=== PATIENT | male | born 1965 | race Caucasian/White ===

== ENCOUNTER 2025-01-11 18:43 | Inpatient (IN) | payer BC, MEDICAID ==
[~2025-01-11] VITALS: Ht 167.6 cm; Wt 56.2 kg
[2025-01-11] MEDS ORDERED: DEXTROSE 50%-WATER 50 ML DISP.SYRIN ONE (19:01)
[2025-01-11 19:25] LABS: BASOPHILS % (AUTO) 0.1 % (0.0-2.0); EOSINOPHILS % (AUTO) 0.1 % (0.0-6.0); HEMATOCRIT 30 % (39-51); HEMOGLOBIN 9.1 g/dL (13.5-17.5); LYMPHOCYTES # (AUTO) 1.5 K/uL (0.8-4.8); LYMPHOCYTES % (AUTO) 9.4 % (20.0-44.0); MEAN CORPUSCULAR HEMOGLOBIN 24 PG (26.0-33.0); MEAN CORPUSCULAR HGB CONC 30 g/dl (31.0-36.0); MEAN CORPUSCULAR VOLUME 80 fL (80-96); MONOCYTES # (AUTO) 0.2 K/uL (0.1-1.30); MONOCYTES % (AUTO) 1.6 % (2.0-12.0); NEUTROPHILS % (AUTO) 88.8 % (43.0-81.0); PLATELET COUNT (AUTO) 289 K/uL (150-450); RED BLOOD CELL COUNT(AUTO) 3.77 MIL/uL (4.5-6.0); RED CELL DISTRIBUTION WIDTH 21.2 % (11.5-15.0); WHITE BLOOD COUNT (AUTO) 15.7 K/uL (4.3-11.0)
[2025-01-11 19:36] LABS: CALCIUM, SERUM 8.4 mg/dL (8.5-10.1); CHLORIDE 96 mmol/L (98-107); CREATININE 3.1 mg/dL (0.6-1.3); GLUCOSE 359 mg/dL (74-106); SODIUM SERUM 128 mmol/L (136-145); UREA NITROGEN, BLOOD 43 mg/dL (7-18)
[2025-01-11 19:37] LABS: SERUM AMMONIA 87 umol/L (11-32)
[2025-01-11 19:40] LABS: INR 1.47 (0.91-1.10); PARTIAL THROMBOPLASTIN TIME 38.2 SEC (24.3-34.3); PROTHROMBIN TIME 15.2 SECS (9.2-11.1)
[2025-01-11] MEDS: PIPERACILLIN /TAZOBACTAM 3.375 G in IV D5W 50 ML IV ONE (19:40)
[2025-01-11] MEDS: DEXTROSE 50%-WATER 50 ML DISP.SYRIN IVP ONE (19:40)
[2025-01-11] MEDS: VANCOMYCIN 1 GM in IV D5W 250 ML IV ONE (19:41)
[2025-01-11] MEDS: IV NS 0.9% 1,000 ML BAG IV ONE ×2 (19:42→19:52)
[2025-01-11] MEDS ORDERED: LORAZEPAM INJ 2 MG/ML VIAL ONE (19:45)
[2025-01-11 19:46] LABS: BAND % (MANUAL) 5 % (0.0-5.0); LYMPHOCYTES % (MANUAL) 12 % (16-48); MONOCYTES % (MANUAL) 4 % (0-11.0); NEUTROPHILS % (MANUAL) 79 (42-76); PLATELET ESTIMATE ADEQU
[2025-01-11 19:47] LABS: ANISOCYTOSIS 1+; LACTIC ACID 13.9 mmol/L (0.4-2.0); ROULEAUX 1+
[2025-01-11] MEDS: LORAZEPAM INJ 2 MG/ML VIAL IV ONE (19:51)
[2025-01-11] MEDS ORDERED: SODIUM BICARBONATE SYR 50 MEQ/50 ML DISP.SYRIN ONE (19:54)
[2025-01-11] MEDS ORDERED: CALCIUM CHLORIDE 1,000 MG/10 ML DISP.SYRIN ONE (19:54)
[2025-01-11 19:55] LABS: ACETAMINOPHEN < 10 ug/ml (10-30); ALANINE AMINOTRANSFERASE 1192 U/L (12-78); ALBUMIN 1.7 g/dL (3.4-5.0); ALKALINE PHOSPHATASE 111 U/L (46-116); ASPARTATE AMINOTRANSFERASE > 1000 U/L (15-37); BILIRUBIN,DIRECT 0.3 mg/dL (0.0-0.2); BILIRUBIN,TOTAL 0.8 mg/dL (0.2-1.0); TOTAL PROTEIN, SERUM 4.7 g/dL (6.4-8.2)
[2025-01-11 19:57] LABS: CARBON DIOXIDE 10 mmol/L (21-32); POTASSIUM 6.6 mmol/L (3.5-5.1); SALICYLATE 1.6 mg/dL (2.8-20.0)
[2025-01-11] MEDS ORDERED: SODIUM ZIRCONIUM CYCLOSILICATE 10 GM POWD.PACK PO ONE (20:00)
[2025-01-11] MEDS: SODIUM BICARBONATE SYR 50 MEQ/50 ML DISP.SYRIN IV ONE (20:00)
[2025-01-11] MEDS: ALBUTEROL FS 2.5 MG/0.5 ML VIAL.NEB NEB ONE (20:00)
[2025-01-11] MEDS: CALCIUM CHLORIDE 1,000 MG/10 ML DISP.SYRIN IV ONE (20:00)
[2025-01-11] MEDS: MIDAZOLAM HCL 100 MG in IV NS 0.9% 80 ML IV PRN (20:01)
[2025-01-11] MEDS ORDERED: PROPOFOL 100 ML ONE (20:02)
[2025-01-11] MEDS: PROPOFOL 100 ML IV PRN (20:11)
[2025-01-11 20:14] LABS: ALCOHOL, BLOOD < 3 mg/dL (0-10)
[2025-01-11 20:25] LABS: ABG BASE EXCESS -20.6 mmol/L (-2.0-3.0); ABG PCO2 28.6 mmHg (35.0-48.0); ABG PH 7.071 (7.350-7.450); ABG PO2 77.5 mmHg (83.0-108.0); COHb 0.1 % (0.5-1.5); MetHb 0.4 % (0.0-1.5); O2Hb 86.6 % (94.0-97.0); PEEP,BG 0 cm H2O; SITE, ABG RIGHT RADIAL; VT, ABG 500 mL
[2025-01-11] MEDS ORDERED: IOHEXOL-300 100 ML VIAL IV ONE (20:37)
[2025-01-11 21:03] LABS: APPEARANCE,URINE CLEAR (CLEAR); BILIRUBIN,URINE NEGATIVE (NEGATIVE); BLOOD, URINE 3+ Ery/uL (NEGATIVE); COLOR,URINE YELLOW (YELLOW); KETONES,URINE TRACE mg/dL (NEGATIVE); LEUKOCYTE ESTERASE ,URINE NEGATIVE (NEGATIVE); NITRITE, URINE NEGATIVE (NEGATIVE); PH,URINE 5.5 (5.0-8.0); PROTEIN,URINE 1+ mg/dl (NEGATIVE); UGLUCOSE NEGATIVE (NEGATIVE); UROBILINOGEN,URINE 0.2 EU/dL (0.2)
[2025-01-11 21:07] LABS: AMPHETAMINE, URINE NEGATIVE (NEGATIVE); BARBITURATE, URINE NEGATIVE (NEGATIVE); BENZODIAZEPINE, URINE NEGATIVE (NEGATIVE); CANNABINOID, URINE NEGATIVE (NEGATIVE); COCCAINE, URINE NEGATIVE (NEGATIVE); OPIATE, URINE NEGATIVE (NEGATIVE); PHENCYCLIDINE SCREEN,URINE NEGATIVE (NEGATIVE)
[2025-01-11 21:10] LABS: RBC,URINE 51-80 /HPF (0-2)
[2025-01-11 21:11] LABS: ADD URINE CULTURE NO; BACTERIA,URINE None seen /HPF (None Seen); HYALINE CASTS, URINE Few /LPF (None Seen); SQUAMOUS EPITHELIAL CELL,UR 0-2 /HPF (None Seen); WBC,URINE 0-2 /HPF (0-3)
[2025-01-11] MEDS ORDERED: SODIUM ZIRCONIUM CYCLOSILICATE 10 GM POWD.PACK ONE (21:17)
[2025-01-11 22:48] LABS: ABG BASE EXCESS -18.5 mmol/L (-2.0-3.0); ABG OXYGEN SATURATION 99.4 % (94.0-98.0); ABG PCO2 23.4 mmHg (35.0-48.0); ABG PO2 550.1 mmHg (83.0-108.0); ABG TOTAL HEMOGLOBIN 11.1 G/dL (13.5-17.5); COHb 0.1 % (0.5-1.5); MetHb 0.5 % (0.0-1.5); O2Hb 98.8 % (94.0-97.0); PEEP,BG 5 cm H2O; SITE, ABG RIGHT RADIAL; VT, ABG 400 mL
[2025-01-11] MEDS: IV NS 0.9% 500 ML BAG IV ONE (22:55)
[2025-01-11] MEDS ORDERED: MAG HYDROX/AL HYDROX/SIMETH 30 ML UDC PO PRN (23:00)
[2025-01-11] MEDS ORDERED: ACETAMINOPHEN 325 MG TABLET PO PRN (23:00)
[2025-01-11] MEDS ORDERED: Z GUARD REMEDY 4 OZ OINT TP PRN (23:00)
[2025-01-11] MEDS ORDERED: ZOLPIDEM TARTRATE 5 MG TABLET PO PRN (23:00)
[2025-01-11] MEDS ORDERED: MAGNESIUM HYDROXIDE 30 ML UDC PO PRN (23:00)
[2025-01-11] MEDS ORDERED: ONDANSETRON HCL/PF 4 MG/2 ML VIAL IVP PRN (23:00)
[2025-01-11] MEDS: D5W IV PRN (23:04)
[2025-01-11] MEDS: KETAMINE HCL IV PRN (23:04)
[2025-01-11] MEDS ORDERED: NOREPINEPHRINE 8MG/250ML RTU 250 ML IV ONE (23:31)
[2025-01-11] MEDS ORDERED: ROCURONIUM BROMIDE 50 MG/5 ML ONE (23:37)
[2025-01-11] MEDS ORDERED: MIDAZOLAM HCL 5 MG/5ML VIAL ONE (23:37)
[2025-01-11] MEDS ORDERED: MIDAZOLAM HCL 2 MG/2ML VIAL ONE (23:37)
[2025-01-11] MEDS ORDERED: VASOPRESSIN INJ 20 UNIT/ML VIAL ONE (23:38)
[2025-01-11] MEDS ORDERED: NOREPINEPHRINE 4 MG/4 ML AMPUL IV ONE (23:38)
[2025-01-11] MEDS ORDERED: ANESTHESIA TRAY IN PYXIS 1 EA TRAY MC ONE (23:39)
[2025-01-11] MEDS: MIDAZOLAM HCL 5 MG/5ML VIAL IV ONE (23:46)
[2025-01-12] VITALS (43 sets, daily range): BP systolic 40–158; BP diastolic 11–76; TEMP 95.5–98.5; O2SAT 95–100
[2025-01-12] MEDS: NOREPINEPHRINE 8 MG in IV D5W 242 ML IV PRN (00:30)
[2025-01-12] MEDS ORDERED: INDOCYANINE GREEN 25 MG/VIAL VIAL IJ ONE (01:53)
[2025-01-12] MEDS: IV 1/2NS 1000 ML 1,000 ML IV PRN (03:27)
[2025-01-12] MEDS: PIPERACILLIN /TAZOBACTAM 3.375 G in IV D5W 50 ML IV ONE (03:53)
[2025-01-12] MEDS: PIPERACI/TAZO 3.375GM/D5W 50ML PB IV ONE (03:54)
[2025-01-12 04:44] LABS: BASOPHILS % (AUTO) 0.1 % (0.0-2.0); EOSINOPHILS # (AUTO) 0.1 K/uL (0.0-0.7); EOSINOPHILS % (AUTO) 0.7 % (0.0-6.0); HEMATOCRIT 30 % (39-51); LYMPHOCYTES # (AUTO) 1.5 K/uL (0.8-4.8); LYMPHOCYTES % (AUTO) 15.1 % (20.0-44.0); MEAN CORPUSCULAR HEMOGLOBIN 25 PG (26.0-33.0); MEAN CORPUSCULAR HGB CONC 30 g/dl (31.0-36.0); MEAN CORPUSCULAR VOLUME 85 fL (80-96); MONOCYTES # (AUTO) 0.1 K/uL (0.1-1.30); MONOCYTES % (AUTO) 1.1 % (2.0-12.0); NEUTROPHILS # (AUTO) 8.1 K/uL (1.8-8.9); PLATELET COUNT (AUTO) 234 K/uL (150-450); RED BLOOD CELL COUNT(AUTO) 3.57 MIL/uL (4.5-6.0); RED CELL DISTRIBUTION WIDTH 21.7 % (11.5-15.0); WHITE BLOOD COUNT (AUTO) 9.8 K/uL (4.3-11.0)
[2025-01-12 04:58] LABS: SERUM AMMONIA 118 umol/L (11-32)
[2025-01-12 05:00] LABS: ALANINE AMINOTRANSFERASE 3480 U/L (12-78); ALKALINE PHOSPHATASE 114 U/L (46-116); BILIRUBIN,DIRECT 0.4 mg/dL (0.0-0.2); BILIRUBIN,TOTAL 0.8 mg/dL (0.2-1.0); TOTAL PROTEIN, SERUM 3.9 g/dL (6.4-8.2)
[2025-01-12 05:51] LABS: ASPARTATE AMINOTRANSFERASE > 1000 U/L (15-37)
[2025-01-12 05:55] LABS: ALBUMIN 1.2 g/dL (3.4-5.0)
[2025-01-12 05:56] LABS: LACTIC ACID 9.5 mmol/L (0.4-2.0)
[2025-01-12 06:28] LABS: CALCIUM, SERUM 6.8 mg/dL (8.5-10.1); POTASSIUM 6.1 mmol/L (3.5-5.1)
[2025-01-12 06:29] LABS: CREATININE 2.2 mg/dL (0.6-1.3); PHOSPHORUS 11.6 mg/dL (2.5-4.9)
[2025-01-12] MEDS ORDERED: DEXTROSE 50%-WATER 50 ML DISP.SYRIN ONE (07:54)
[2025-01-12] MEDS ORDERED: DEXTROSE 50%-WATER 50 ML DISP.SYRIN IVP PRN (08:00)
[2025-01-12] MEDS: PHENYLEPHRINE 100 MG in IV NS 0.9% 240 ML IV PRN (08:03)
[2025-01-12 08:13] LABS: ABG BASE EXCESS -22.2 mmol/L (-2.0-3.0); ABG OXYGEN SATURATION 99.1 % (94.0-98.0); ABG PCO2 46.1 mmHg (35.0-48.0); ABG PH 6.916 (7.350-7.450); ABG PO2 248.4 mmHg (83.0-108.0); ABG TOTAL HEMOGLOBIN 8.5 G/dL (13.5-17.5); COHb 0.3 % (0.5-1.5); MetHb 0.3 % (0.0-1.5); O2Hb 98.5 % (94.0-97.0); PEEP,BG 5 cm H2O; SITE, ABG RIGHT RADIAL; VT, ABG 400 mL
[2025-01-12] MEDS: SODIUM BICARBONATE SYR 50 MEQ/50 ML DISP.SYRIN IV ONE (08:22)
[2025-01-12] MEDS: DEXTROSE 50%-WATER 50 ML DISP.SYRIN IVP PRN (08:26)
[2025-01-12] MEDS ORDERED: ENOXAPARIN SODIUM 30 MG/0.3 ML DISP.SYRIN SQ SCH (09:00)
[2025-01-12] MEDS: PANTOPRAZOLE 40 MG VIAL IV SCH (09:41)
[2025-01-12] MEDS: VANCOMYCIN 1 GM in IV D5W 250ml IV ONE (09:41)
[2025-01-12] MEDS: PIPERACILLIN /TAZOBACTAM 3.375 G in IV D5W 100 ML IV SCH (10:04)
[2025-01-12] MEDS: Sodium Bicarbonate 150 MEQ in IV D5W 1,000 ML IV SCH (10:25)
[2025-01-12] MEDS ORDERED: NOREPINEPHRINE 32 MG in IV NS 0.9% 218 ML IV PRN ×2 (11:00→13:00)
[2025-01-13] MEDS ORDERED: VANCOMYCIN 1 GM in IV D5W 250ml IV SCH (09:00)
== END 2025-01-12 18:28 | DRG 710 ==
LOC: ER 18:43 → ICU 23:40
PROVIDERS: ADMIT Student in an Organized Health Care Education/Training Program; ATTEND Student in an Organized Health Care Education/Training Program
PROC: 5A1935Z Respiratory Ventilation, Less than 24 Consecutive Hours (ICD-10-PCS; 2025-01-11)
PROC: 0BH17EZ Insertion of Endotracheal Airway into Trachea, Via Natural or Artificial Opening (ICD-10-PCS; 2025-01-11)
PROC: 0DQW0ZZ Repair Peritoneum, Open Approach (ICD-10-PCS; 2025-01-11)
PROC: 0DNU0ZZ Release Omentum, Open Approach (ICD-10-PCS; principal; 2025-01-12)
PROC: 4A1BXSH Monitoring of Gastrointestinal Vascular Perfusion using Indocyanine Green Dye, External Approach (ICD-10-PCS; 2025-01-12)
DX: A41.9 Sepsis, unspecified organism (principal); K72.00 Acute and subacute hepatic failure without coma; R65.21 Severe sepsis with septic shock; J96.00 Acute respiratory failure, unspecified whether with hypoxia or hypercapnia; N17.0 Acute kidney failure with tubular necrosis; K55.9 Vascular disorder of intestine, unspecified; E43 Unspecified severe protein-calorie malnutrition; G92.9 Unspecified toxic encephalopathy; E87.5 Hyperkalemia; N12 Tubulo-interstitial nephritis, not specified as acute or chronic; E87.1 Hypo-osmolality and hyponatremia; E87.20 Acidosis, unspecified; K56.50 Intestinal adhesions [bands], unspecified as to partial versus complete obstruction; Z93.3 Colostomy status; Z59.00 Homelessness unspecified; R74.01 Elevation of levels of liver transaminase levels; D68.9 Coagulation defect, unspecified; D64.9 Anemia, unspecified; G93.40 Encephalopathy, unspecified
CPT/HCPCS: 31720; 36415; 36600; 70450-TC; 71045-TC; 72125-TC; 74018; 80048-TC; 80076-TC; 81001; 82140-TC; 82803-TC; 82962-TC; 83605-TC; 83735-TC; 84100-TC; 84443-TC; 84484-TC; 85025-TC; 85730-TC; 86850-TC; 87040-TC; 87081-TC; 87086-TC; 94799-TC; A4223; A6209; C1751; G0378; G0480; J0690; J2060; J2250; J2470; J2543; J3370; J3490; J7030; J7040; J7050; J7060; J7070; Q9967; Q9968